=== PATIENT | female | born 2005 | race Caucasian/White ===

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

== ENCOUNTER 2024-01-17 22:49 | Emergency (ER) | payer OTHER ==
[2024-01-17 23:05] VITALS: BP 153/84; PULSE 99; RESP 18; TEMP 98.1; BMI 41.0
[2024-01-18 00:16] LABS: BASO % 0.5 % (0-2.0); EOS % 2.2 % (0-4.5); HEMATOCRIT 29.9 % (32.4-45.2); HEMOGLOBIN 9.9 GM/dL (10.7-15.3); LYMPH % 27.4 % (8-40); MCH 28.7 pg (25.7-33.7); MCHC 33.1 g/dl (32.0-36.0); MEAN CELL VOLUME 86.7 fl (80-96); MEAN PLT VOLUME 9.8 fl (7.5-11.1); NEUT % 60.9 % (42.8-82.8); PLATELET COUNT 221 10^3/uL (134-434); RBC 3.45 M/mm3 (3.60-5.2); RDW 13.8 % (11.6-15.6); WHITE BLOOD COUNT 7.6 K/mm3 (4.0-10.0)
[2024-01-18 00:38] LABS: POTASSIUM 4.1 mmol/L (3.5-5.1)
[2024-01-18 00:40] LABS: ALBUMIN 3.5 g/dl (3.4-5.0); CALCIUM 8.7 mg/dL (8.5-10.1)
[2024-01-18 00:44] LABS: CREATININE 0.7 mg/dL (0.55-1.3)
[2024-01-18 00:45] LABS: BILIRUBIN,TOTAL 0.2 mg/dL (0.2-1)
[2024-01-18 00:46] LABS: TOT PROT 6.8 g/dl (6.4-8.2)
== END 2024-01-18 01:12 | disposition home or self-care (01) ==
LOC: JER 22:49
DX: N93.9 Abnormal uterine and vaginal bleeding, unspecified (principal); R10.32 Left lower quadrant pain
CPT/HCPCS: 36415; 80053; 84703; 85025; 86850; 86900; 86901; 99283-25